=== PATIENT | male | born 1975 | race Caucasian/White ===

== ENCOUNTER 2016-07-12 18:14 | Emergency (ER) | payer BC ==
[2016-07-12 19:52] VITALS: BP 112/73
--- NOTE | 2016-07-12 20:03 | UC ---
Respiratory Complaint HPI - HPI Summary HPI Summary: Patient had flu 2 weeks ago, now has increased forceful cough. - History of Current Complaint Chief Complaint: UC Stated Complaint: COUGH,SORE THROAT Time Seen by Provider: 07/12/16 19:53 Hx Obtained From: Patient Onset/Duration: Gradual Onset, Lasting Weeks Timing: Constant Severity Initially: Moderate Severity Currently: Severe Pain Intensity: 8 Pain Scale Used: 0-10 Numeric Aggravating Factors: Exertion, Deep Breaths, Recumbent Position Alleviating Factors: Nothing Associated Signs And Symptoms: Positive: Wheezing - Risk Factors Pulmonary Embolism Risk Factors: Negative Cardiac Risk Factors: Negative Pseudomonas Risk Factors: Negative Tuberculosis Risk Factors: Negative - Allergies/Home Medications Allergies/Adverse Reactions: Allergies Allergy/AdvReac Type Severity Reaction Status Date / Time No Known Allergies Allergy Verified 07/12/16 19:45 PMH/Surg Hx/FS Hx/Imm Hx Previously Healthy: Yes Endocrine History Of: Denies: Diabetes Cardiovascular History Of: Denies: Hypertension, Pacemaker/ICD GI/ History Of: Denies: Renal Disease - Surgical History Surgical History: None - Family History Known Family History: Negative: Hypertension - Social History Alcohol Use: None Substance Use Type: None Smoking Status (MU): Former Smoker - Immunization History Most Recent Influenza Vaccination: none Review of Systems Constitutional: Negative Skin: Negative Eyes: Negative ENT: Negative Respiratory: Cough Cardiovascular: Negative Gastrointestinal: Negative Genitourinary: Negative Motor: Negative Neurovascular: Negative Musculoskeletal: Negative Neurological: Negative Psychological: Negative All Other Systems Reviewed And Are Negative: Yes Physical Exam Triage Information Reviewed: Yes Appearance: Well-Nourished, Ill-Appearing, Pain Distress Vital Signs: Initial Vital Signs Temp 97.6 F 07/12/16 19:46 Pulse 76 07/12/16 19:46 Resp 16 07/12/16 19:46 BP 112/73 07/12/16 19:46 Pulse Ox 100 07/12/16 19:46 Vital Signs Reviewed: Yes Eye Exam: Normal Eyes: Positive: Conjunctiva Clear ENT: Positive: Hearing grossly normal, Pharyngeal erythema - tonsoliths noted, TMs normal, Muffled/hoarse voice Dental Exam: Normal Neck exam: Normal Neck: Positive: Supple, Nontender, No Lymphadenopathy Respiratory: Positive: Chest non-tender, Normal breath sounds, Wheezing, Inspiration Cardiovascular Exam: Normal Cardiovascular: Positive: RRR, No Murmur, Pulses Normal Abdominal Exam: Normal Abdomen Description: Positive: Nontender, No Organomegaly, Soft Bowel Sounds: Positive: Present Musculoskeletal Exam: Normal Musculoskeletal: Positive: Strength Intact, ROM Intact, No Edema Neurological Exam: Normal Neurological: Positive: Alert, Muscle Tone Normal Psychological Exam: Normal Skin Exam: Normal UC Diagnostic Evaluation - Laboratory O2 Sat by Pulse Oximetry: 100 Respiratory Course/Dx - Course Course Of Treatment: hx obtained, exam performed, removed large tonsolith, educated on symtpomatic treatment, prescriptions given for bronchospasm - Differential Dx/Diagnosis Differential Diagnosis/HQI/PQRI: Aspiration, Asthma, Bronchitis, Influenza, Laryngitis, Sinusitis Provider Diagnoses: bronchospasm Discharge - Discharge Plan Condition: Stable Disposition: HOME Patient Education Materials: Bronchospasm (ED) Additional Instructions: take the prescriptions as prescribed. Gargle with salt water frequently. Increase your fluid intake, TEA!
== END 2016-07-12 20:20 | disposition home or self-care (01) ==
LOC: UCEAST 18:14
DX: J98.01 Acute bronchospasm (principal); Z87.891 Personal history of nicotine dependence
CPT/HCPCS: 99212; G0463

== ENCOUNTER 2016-08-17 16:00 | Emergency (ER) | payer BC | END 2016-08-17 17:30 | disposition left against medical advice (07) | LOC: UCEAST 16:00 | DX: R05 Cough (principal); Z53.21 Procedure and treatment not carried out due to patient leaving prior to being seen by health care provider ==

== ENCOUNTER 2016-08-17 17:33 | Emergency (ER) | payer BC ==
[2016-08-17 18:51] VITALS: BP 135/77
[2016-08-17] MEDS ORDERED: Albuterol 2.5 MG/3 ML NEB.SOL* (0.083%) INH ONE (19:43)
--- NOTE | 2016-08-17 19:43 | UC ---
Respiratory Complaint HPI - HPI Summary HPI Summary: patient had the flu 3 weeks ago, has had a lingering cough, worse at night, sometimes hard to take a deep breath - History of Current Complaint Chief Complaint: UCRespiratory Stated Complaint: COUGH Time Seen by Provider: 08/17/16 19:36 Hx Obtained From: Patient Onset/Duration: Sudden Onset, Lasting Weeks Timing: Constant Severity Initially: Mild Severity Currently: Moderate Character: Cough: Nonproductive Aggravating Factors: Exertion, Deep Breaths, Recumbent Position Alleviating Factors: Nothing Associated Signs And Symptoms: Positive: Wheezing - Risk Factors Pulmonary Embolism Risk Factors: Negative Cardiac Risk Factors: Negative Pseudomonas Risk Factors: Bronchiectasis Tuberculosis Risk Factors: Negative - Allergies/Home Medications Allergies/Adverse Reactions: Allergies Allergy/AdvReac Type Severity Reaction Status Date / Time No Known Allergies Allergy Verified 08/09/16 13:22 Home Medications: Home Medications Pseudoephedrine-Guaifenesin [Mucinex D 60-600 mg] 1 tab PO 08/17/16 [History] PMH/Surg Hx/FS Hx/Imm Hx Previously Healthy: Yes Endocrine History Of: Denies: Diabetes Cardiovascular History Of: Denies: Hypertension, Pacemaker/ICD GI/ History Of: Denies: Renal Disease - Surgical History Surgical History: None - Family History Known Family History: Negative: Hypertension - Social History Alcohol Use: None Substance Use Type: None Smoking Status (MU): Former Smoker When Did the Patient Quit Smoking/Using Tobacco: quit 3-4 months marie (early 2016 ) - Immunization History Most Recent Influenza Vaccination: none Review of Systems Constitutional: Negative Skin: Negative Eyes: Negative ENT: Negative Respiratory: Shortness Of Breath, Cough Cardiovascular: Negative Gastrointestinal: Negative Genitourinary: Negative Motor: Negative Neurovascular: Negative Musculoskeletal: Negative Neurological: Negative Psychological: Negative All Other Systems Reviewed And Are Negative: Yes Physical Exam Triage Information Reviewed: Yes Appearance: Well-Appearing, Well-Nourished, Pain Distress Vital Signs: Initial Vital Signs Temp 97.5 F 08/17/16 18:47 Pulse 86 08/17/16 18:47 Resp 18 08/17/16 18:47 BP 135/77 08/17/16 18:47 Pulse Ox 100 08/17/16 18:47 Vital Signs Reviewed: Yes Eye Exam: Normal Eyes: Positive: Conjunctiva Clear ENT Exam: Normal ENT: Positive: Pharyngeal erythema, TMs normal Dental Exam: Normal Neck exam: Normal Neck: Positive: Supple, Nontender, No Lymphadenopathy Respiratory: Positive: Chest non-tender, No respiratory distress, No accessory muscle use, Decreased breath sounds, Wheezing, Inspiration Cardiovascular Exam: Normal Cardiovascular: Positive: RRR, No Murmur, Pulses Normal Abdominal Exam: Normal Abdomen Description: Positive: Nontender, No Organomegaly, Soft Bowel Sounds: Positive: Present Musculoskeletal Exam: Normal Musculoskeletal: Positive: Strength Intact, ROM Intact, No Edema Neurological Exam: Normal Neurological: Positive: Alert, Muscle Tone Normal Psychological Exam: Normal Skin Exam: Normal UC Diagnostic Evaluation - Laboratory O2 Sat by Pulse Oximetry: 100 Respiratory Course/Dx - Course Course Of Treatment: hx obtained, exam performed, meds reviewed, albuterol neb treatment given with good results. medication prescirbed. - Differential Dx/Diagnosis Differential Diagnosis/HQI/PQRI: Asthma, Bronchitis, CHF, Influenza, Laryngitis , Sinusitis Provider Diagnoses: bronchospasm Discharge - Discharge Plan Condition: Stable Disposition: HOME Prescriptions: predniSONE TAB* [Deltasone TAB*] 40 mg PO DAILY #10 tab Referrals: Ted Goodson MD [Primary Care Provider] - Additional Instructions: 1. take the prednisone as prescribed. 2. Continue to use the Mucinex twice a day 3. Use the albuterol twice a day. 4. If cough persists go into cold air it will help calm the spasm.
== END 2016-08-17 20:41 | disposition home or self-care (01) ==
LOC: UCEAST 17:33
DX: J98.01 Acute bronchospasm (principal); Z87.891 Personal history of nicotine dependence
CPT/HCPCS: 99212; G0463